=== PATIENT | female | born 1960 | race Caucasian/White ===

== ENCOUNTER 2023-09-23 19:37 | Emergency (ER) | payer MEDICAID, OTHER ==
[~2023-09-23] VITALS: Ht 162.6 cm; Wt 80.0 kg
[2023-09-23 19:46] VITALS: O2SAT 99
[2023-09-23] MEDS ORDERED: ACETAMINOPHEN 325MG TABLET PO ONE (20:30)
[2023-09-23] MEDS ORDERED: KETOROLAC 60MG/2ML VIAL IM ONE (20:30)
[2023-09-23] MEDS ORDERED: NAPR-681 MT (22:21)
[2023-09-23 22:23] VITALS: BP 135/75; PULSE 75; RESP 16; TEMP 97.8
[2023-09-23] MEDS: ACETAMINOPHEN 325MG TABLET PO NR (22:23)
[2023-09-23] MEDS: KETOROLAC 30MG/ML VIAL IM NR (22:23)
== END 2023-09-23 22:44 | disposition home or self-care (01) ==
LOC: ER 19:37
DX: M25.562 Pain in left knee (principal); M25.511 Pain in right shoulder; M25.531 Pain in right wrist; W18.39XA Other fall on same level, initial encounter; Y93.89 Activity, other specified; Y92.89 Other specified places as the place of occurrence of the external cause; Y99.8 Other external cause status
CPT/HCPCS: 73030; 73110; 73562; 96372; 99284; J1885; Z7610; 73560